=== PATIENT | female | born 1965 | race Caucasian/White ===

== ENCOUNTER 2022-06-12 08:05 | Day surgery (SDC) | payer OTHER ==
[~2022-06-12] VITALS: Ht 154.9 cm; Wt 76.2 kg
[2022-06-12] MEDS ORDERED: MIDAZOLAM 5 MG/5 ML VIAL ONE (10:16)
[2022-06-12] MEDS ORDERED: fentaNYL citrate 0.05 MG/ML VIAL ONE (10:16)
[2022-06-12] MEDS ORDERED: LIDOCAINE 2% 100 MG/5 ML UJET TP ONE (10:17)
== END 2022-06-12 11:45 | disposition home or self-care (01) ==
LOC: MMU 08:05 → MDS 08:05
PROVIDERS: ATTEND Internal Medicine Gastroenterology
DX: Z12.11 Encounter for screening for malignant neoplasm of colon (principal); D12.3 Benign neoplasm of transverse colon; K57.30 Diverticulosis of large intestine without perforation or abscess without bleeding; Z20.822 Contact with and (suspected) exposure to COVID-19; Z90.49 Acquired absence of other specified parts of digestive tract; Z79.899 Other long term (current) drug therapy
CPT/HCPCS: 45385; 87426; J2250; J3010; J7030